=== PATIENT | male | born 1970 | race Caucasian/White ===

== ENCOUNTER 2016-12-06 22:30 | Emergency (ER) | payer SELFPAY ==
[~2016-12-06] VITALS: Ht 195.6 cm; Wt 96.4 kg
[2016-12-06 22:32] VITALS: BP 129/79; TEMP 98
[2016-12-06] MEDS ORDERED: SINGULAIR 110 MG/TAB PO (22:34)
[2016-12-06 23:34] VITALS: PULSE 76
== END 2016-12-06 23:35 | disposition home or self-care (01) ==
LOC: COL.ER 22:30
DX: S80.862A Insect bite (nonvenomous), left lower leg, initial encounter (principal); W57.XXXA Bitten or stung by nonvenomous insect and other nonvenomous arthropods, initial encounter